=== PATIENT | male | born 1985 | race Caucasian/White ===

== ENCOUNTER 2021-05-04 14:47 | Emergency (ER) | payer OTHER ==
[2021-05-04] MEDS ORDERED: Acetaminophen 325 MG Tab PO ONE ×2 (15:25→16:08)
[2021-05-04] MEDS ORDERED: Acetaminophen/HYDROcodone 325-5 MG Tab PO ONE (16:08)
== END 2021-05-04 16:40 | disposition home or self-care (01) ==
LOC: JD.ED 14:47
DX: S20.211A Contusion of right front wall of thorax, initial encounter (principal); W19.XXXA Unspecified fall, initial encounter
CPT/HCPCS: 71101; 99283; A9270

== ENCOUNTER 2022-06-29 15:49 | Emergency (ER) | payer OTHER ==
[2022-06-29] MEDS ORDERED: Diphtheria,Pertussis(Acell),Tetanus Vaccine 0.5 ML Syringe IM ONE (17:28)
[2022-06-29] MEDS: Proparacaine 0.5% Ophth Soln 15 ML Bottle EYERT SCH ×2 (17:50→18:55)
[2022-06-29] MEDS ORDERED: Acetaminophen/HYDROcodone 325-5 MG Tab PO ONE (18:41)
[2022-06-29] MEDS ORDERED: Erythromycin Base 0.5% Ophth Oint 1 GM Tube EYERT ONE (18:48)
== END 2022-06-29 19:15 | disposition home or self-care (01) ==
LOC: JD.ED 15:49
DX: T15.11XA Foreign body in conjunctival sac, right eye, initial encounter (principal); Z23 Encounter for immunization; Z86.16 Personal history of COVID-19
CPT/HCPCS: 65205; 90471; 90715; 99283; A9270; 99282; J3490